=== PATIENT | male | born 1985 | race Caucasian/White ===

== ENCOUNTER 2021-08-13 14:06 | Emergency (ER) | payer BC, OTHER ==
[2021-08-13] MEDS ORDERED: Sodium Chloride 0.9% 10 ML Syringe FLUSH PRN (14:25)
[2021-08-13] MEDS ORDERED: Dexamethasone 4 MG Tab PO ONE (14:28)
--- NOTE | 2021-08-13 14:38 | EDM.PDOC ---
ED HPI GENERAL MEDICAL PROBLEM - General Chief Complaint: Respiratory Problem Stated Complaint: COVID + Time Seen by Provider: 08/13/21 14:15 Source of Information: Reports: Patient, RN Notes Reviewed History Limitations: Reports: No Limitations - History of Present Illness INITIAL COMMENTS - FREE TEXT/NARRATIVE: Patient is a 36-year-old male presenting to the emergency department with complaints of harsh cough and shortness of breath with a known diagnosis of COVID-19. Patient reports symptoms began approximately 10 days ago. He was seen in the clinic to receive monoclonal antibody infusion and found to be hypoxic. On arrival to ER, oxygen saturations were 80% on room air after ambulating back to the room. He is currently on 1-1/2 L of oxygen saturating in the low 90s. Patient denies any chest pain, fever, chills, nausea, vomiting, or diarrhea. Reports that he only feels short of breath when he has a boat coughing fit ". Denies any chronic underlying medical conditions. - Related Data Allergies Allergy/AdvReac Type Severity Reaction Status Date / Time No Known Allergies Allergy Verified 08/13/21 14:18 Home Meds: Home Meds dexAMETHasone [Decadron] 6 mg PO DAILY 4 Days #4 tablet 08/13/21 [Rx] Past Medical History Musculoskeletal History: Reports: Back Pain, Chronic Endocrine/Metabolic History: Reports: Obesity/BMI 30+ - Infectious Disease History Infectious Disease History: Reports: Novel Coronavirus Social & Family History - Tobacco Use Tobacco Use Status *Q: Never Tobacco User - Caffeine Use Caffeine Use: Reports: None - Recreational Drug Use Recreational Drug Use: No ED ROS GENERAL - Review of Systems Review Of Systems: See Below Constitutional: Denies: Fever, Weakness HEENT: Reports: No Symptoms Respiratory: Reports: Shortness of Breath, Cough. Denies: Pleuritic Chest Pain Cardiovascular: Reports: Dyspnea on Exertion. Denies: Chest Pain Endocrine: Reports: No Symptoms GI/Abdominal: Reports: No Symptoms : Reports: No Symptoms Musculoskeletal: Reports: No Symptoms Skin: Reports: No Symptoms Neurological: Reports: No Symptoms Psychiatric: Reports: No Symptoms Hematologic/Lymphatic: Reports: No Symptoms Immunologic: Reports: No Symptoms ED EXAM, GENERAL - Physical Exam Exam: See Below Exam Limited By: No Limitations General Appearance: Alert, WD/WN, No Apparent Distress Respiratory/Chest: No Respiratory Distress, Normal Breath Sounds, No Accessory Muscle Use, Chest Non-Tender, Other (Occasional scattered rhonchi) Cardiovascular: Normal Peripheral Pulses, Regular Rate, Rhythm, No Edema, No Gallop, No JVD, No Murmur, No Rub GI/Abdominal: Normal Bowel Sounds, Soft, Non-Tender, No Organomegaly, No Distention, No Abnormal Bruit, No Mass Neurological: Alert, Oriented, CN II-XII Intact, Normal Cognition, Normal Gait, Normal Reflexes, No Motor/Sensory Deficits Psychiatric: Normal Affect, Normal Mood Skin Exam: Warm, Dry, Intact, Normal Color, No Rash Course - Vital Signs Last Recorded V/S: Last Vital Signs Temp 98.1 F 08/13/21 14:15 Pulse 91 08/13/21 14:15 Resp 20 08/13/21 14:15 BP 120/73 08/13/21 14:15 Pulse Ox 95 08/13/21 15:40 - Orders/Labs/Meds Labs: Laboratory Tests 08/13/21 08/13/21 08/13/21 Range/Units 15:38 15:38 15:38 WBC 4.44 (4.23-9.07) K/mm3 RBC 5.17 (4.63-6.08) M/mm3 Hgb 14.9 (13.7-17.5) gm/dl Hct 44.7 (40.1-51.0) % MCV 86.5 (79.0-92.2) fl MCH 28.8 (25.7-32.2) pg MCHC 33.3 (32.2-35.5) g/dl RDW Std Deviation 41.0 (35.1-43.9) fL Plt Count 236 (163-337) K/mm3 MPV 9.7 (9.4-12.3) fl Neut % (Auto) 60.4 (34.0-67.9) % Lymph % (Auto) 21.8 (21.8-53.1) % [place] % (Auto) 10.8 (5.3-12.2) % Eos % (Auto) 0.7 L (0.8-7.0) Baso % (Auto) 0.9 (0.1-1.2) % Neut # (Auto) 2.68 (1.78-5.38) K/mm3 Lymph # (Auto) 0.97 L (1.32-3.57) K/mm3 [place] # (Auto) 0.48 (0.30-0.82) K/mm3 Eos # (Auto) 0.03 L (0.04-0.54) K/mm3 Baso # (Auto) 0.04 (0.01-0.08) K/mm3 D-Dimer, Quantitative 0.63 H (0.19-0.50) mg/L Sodium 144 (136-145) mEq/L Potassium 3.9 (3.5-5.1) mEq/L Chloride 105 (98-107) mEq/L Carbon Dioxide 30 (21-32) mEq/L Anion Gap 12.9 (5-15) BUN 13 (7-18) mg/dL Creatinine 1.0 (0.7-1.3) mg/dL Est Cr Clr Drug Dosing 101.14 mL/min Estimated GFR (MDRD) > 60 (>60) mL/min BUN/Creatinine Ratio 13.0 L (14-18) Glucose 98 (70-99) mg/dL Calcium 8.1 L (8.5-10.1) mg/dL Total Bilirubin 0.6 (0.2-1.0) mg/dL AST 88 H (15-37) U/L ALT 110 H (16-63) U/L Alkaline Phosphatase 84 (46-116) U/L Troponin I < 0.017 (0.00-0.056) ng/mL C-Reactive Protein 4.0 H* (<1.0) mg/dL Total Protein 6.8 (6.4-8.2) g/dl Albumin 3.2 L (3.4-5.0) g/dl Globulin 3.6 gm/dL Albumin/Globulin Ratio 0.9 L (1-2) Meds: Medications Discontinued Medications Generic Name Dose Route Start Last Admin Trade Name Freq PRN Reason Stop Dose Admin Dexamethasone 6 mg 08/13/21 14:28 08/13/21 15:39 Dexamethasone 4 Mg Tab PO 08/13/21 14:29 6 mg ONETIME ONE Administration Sodium Chloride 10 ml 08/13/21 14:25 08/13/21 15:39 Sodium Chloride 0.9% 10 Ml Syringe FLUSH 10 ml ASDIRECTED PRN Administration Keep Vein Open - Re-Assessments/Exams Free Text/Narrative Re-Assessment/Exam: Patient is a 36-year-old male presenting to the emergency department from the clinic for evaluation of hypoxia with known diagnosis of COVID-19. Reports he was going to the clinic today to get monoclonal antibody infusion and he was found to be hypoxic, therefore they sent him here. He is on approximately day 10 of his illness. Oxygen saturation after ambulating back to the room was found to be 83% on room air. He is currently on 1-1/2 L saturating in the low 90s. Main complaints are cough and shortness of breath. Denies any nausea vomiting or diarrhea. Has had no chest pain. I have ordered blood work, chest x-ray, and dexamethasone 6 mg orally to be given now. 08/13/21 17:03 Hematology significant for D-dimer minimally elevated 0.63, CRP 4.0. These are both to be expected with a known diagnosis of COVID-19. Liver enzymes are mi ldly elevated at AST 88 and [id number]. Chest x-ray shows moderate to severe Covid pneumonia. Patient is maintaining oxygen saturation of 95% on 2 L of oxygen by nasal cannula. Discussed with him that ideally I would like to have him admitted into the hospital for treatment with steroids and remdesivir, however the no beds available in our facility or in [place]. Discussed that I would like to look beyond this, however he refused. States that he will not be admitted anywhere further than [place]. I did reconfirm with both [facility] in [place] that they have no beds available. Alternatively, patient will be discharged home on home oxygen with dexamethasone. Discussed with him that if he is requiring more than 4 L of oxygen to keep his saturations above 92%, he should return to the emergency department. Departure - Departure Time of Disposition: 17:26 Disposition: Home, Self-Care 01 Condition: Fair Clinical Impression: Pneumonia due to COVID-19 virus - Discharge Information *PRESCRIPTION DRUG MONITORING PROGRAM REVIEWED*: No *COPY OF PRESCRIPTION DRUG MONITORING REPORT IN PATIENT SHAHID: No Prescriptions: dexAMETHasone [Decadron] 6 mg PO DAILY 4 Days #4 tablet Instructions: COVID-19 Referrals: PCP,None [Primary Care Provider] - Forms: ED Department Discharge Additional Instructions: You were seen in the emergency department today for evaluation of cough and shortness of breath with a known diagnosis of COVID-19. Work-up included blood work and chest x-ray. Results of work-up show that you do have fairly significant Covid pneumonia. Your oxygen saturation was 83% on room air upon arrival to ER with ideal oxygenation being above 92%. While in the ER, you received your first dose of dexamethasone which is a steroid. Admission to hospital facility would be ideal, however there are no available hospital beds in [facility] and you declined for us to look further for hospital placement. You have been sent home with home oxygen. Wear this at all times to keep your oxygen saturations above 92%. Prescription for dexamethasone has been sent to your pharmacy. Take this as prescribed starting tomorrow. If you feel that your symptoms are worsening or you are requiring more than 4 L of oxygen to keep your saturations above 92%, you should return to the emergency department for reevaluation. Sepsis Event Note (ED) - Evaluation Sepsis Screening Result: No Definite Risk
--- NOTE | 2021-08-13 15:07 | CR ---
Chest: Frontal view of the chest was obtained. Comparison: No previous chest imaging is available. Patchy areas of increased density are seen on both sides of the chest. Heart size and mediastinum are normal. Bony structure shows nothing definitely acute. Impression: 1. Patchy areas of increased density on both sides of the chest highly suspicious for moderate to severe areas of COVID pneumonia. Diagnostic code #3
== END 2021-08-13 19:40 | disposition home or self-care (01) ==
LOC: JD.ED 14:06
DX: U07.1 COVID-19 (principal); J12.82 Pneumonia due to coronavirus disease 2019; E66.9 Obesity, unspecified; Z68.41 Body mass index [BMI] 40.0-44.9, adult
CPT/HCPCS: 36415; 71045; 80053; 84484; 85025; 85379; 86140; 99285; J8540; 99284

== ENCOUNTER 2023-01-27 19:38 | Emergency (ER) | payer BC | END 2023-01-27 21:13 | disposition home or self-care (01) | LOC: JD.ED 19:38 | DX: S61.217A Laceration without foreign body of left little finger without damage to nail, initial encounter (principal); E66.9 Obesity, unspecified; Z68.42 Body mass index [BMI] 45.0-49.9, adult; W26.0XXA Contact with knife, initial encounter | CPT/HCPCS: 99282 ==

== ENCOUNTER 2023-05-08 17:39 | Emergency (ER) | payer BC ==
[2023-05-08] MEDS ORDERED: Aspirin 81 MG Tab.Chew PO ONE (17:51)
[2023-05-08 18:18] LABS: BASOPHILS ABSOLUTE AUTO 0.01 K/mm3 (0.01-0.08); BASOPHILS PERCENT AUTO 0.1 % (0.1-1.2); EOSINOPHILS ABSOLUTE AUTO 0.15 K/mm3 (0.04-0.54); HEMATOCRIT 43.4 % (40.1-51.0); HEMOGLOBIN 14.9 gm/dl (13.7-17.5); IMMATURE GRAN ABSOLUTE AUTO 0.06 K/mm3 (0.00-0.10); IMMATURE GRAN PERCENT AUTO 0.8 % (<=1.0); LYMPHOCYTES ABSOLUTE AUTO 2.34 K/mm3 (1.32-3.57); LYMPHOCYTES PERCENT AUTO 30.8 % (21.8-53.1); MEAN CORPUSCULAR HGB CONC 34.3 g/dl (32.2-35.5); MEAN CORPUSCULAR VOLUME 84.6 fl (79.0-92.2); MEAN PLATELET VOLUME 9.6 fl (9.4-12.3); MONOCYTES ABSOLUTE AUTO 0.93 K/mm3 (0.30-0.82); MONOCYTES PERCENT AUTO 12.2 % (5.3-12.2); NEUTROPHILS ABSOLUTE AUTO 4.11 K/mm3 (1.78-5.38); NEUTROPHILS PERCENT AUTO 54.1 % (34.0-67.9); PLATELET COUNT,PLT 199 K/mm3 (163-337); RED BLOOD CELL COUNT 5.13 M/mm3 (4.63-6.08)
[2023-05-08 18:36] LABS: INR 0.96; PROTHROMBIN TIME 10.3 SECONDS (9.7-12.0)
[2023-05-08 18:38] LABS: D-DIMER QUANTITATIVE < 0.19 mg/L (0.19-0.50)
[2023-05-08 18:45] LABS: A/G RATIO 1.4 (1-2); ALBUMIN 4.1 g/dl (3.4-5.0); ANION GAP 12.6 (5-15); BILIRUBIN TOTAL 0.7 mg/dL (0.2-1.0); CALCIUM 8.7 mg/dL (8.5-10.1); EST CRCL DRUG DOSING (CG) 100.16 mL/min; POTASSIUM,K 3.6 mEq/L (3.5-5.1); PROTEIN TOTAL,TP 7.1 g/dl (6.4-8.2)
== END 2023-05-08 19:08 | disposition home or self-care (01) ==
LOC: JD.ED 17:39
DX: R07.9 Chest pain, unspecified (principal); E66.9 Obesity, unspecified; Z68.41 Body mass index [BMI] 40.0-44.9, adult; Z86.16 Personal history of COVID-19
CPT/HCPCS: 36415; 71045; 80053; 84484; 85025; 85379; 85610; 99285; A9270; 93010; 99284

== ENCOUNTER 2023-05-22 15:48 | Emergency (ER) | payer BC ==
[2023-05-22] MEDS ORDERED: Sodium Chloride 0.9% 10 ML Syringe FLUSH PRN (16:07)
[2023-05-22] MEDS ORDERED: HYDROmorphone 0.5 MG/0.5 ML Syringe IVPUSH ONE (16:08)
[2023-05-22 16:24] LABS: BASOPHILS ABSOLUTE AUTO 0.02 K/mm3 (0.01-0.08); BASOPHILS PERCENT AUTO 0.3 % (0.1-1.2); EOSINOPHILS ABSOLUTE AUTO 0.15 K/mm3 (0.04-0.54); EOSINOPHILS PERCENT AUTO 1.9 (0.8-7.0); HEMATOCRIT 43.4 % (40.1-51.0); HEMOGLOBIN 14.7 gm/dl (13.7-17.5); IMMATURE GRAN ABSOLUTE AUTO 0.13 K/mm3 (0.00-0.10); IMMATURE GRAN PERCENT AUTO 1.7 % (<=1.0); LYMPHOCYTES PERCENT AUTO 28.1 % (21.8-53.1); MEAN CORPUSCULAR HEMOGLOBIN 28.9 pg (25.7-32.2); MEAN CORPUSCULAR HGB CONC 33.9 g/dl (32.2-35.5); MEAN CORPUSCULAR VOLUME 85.4 fl (79.0-92.2); MEAN PLATELET VOLUME 9.8 fl (9.4-12.3); MONOCYTES ABSOLUTE AUTO 0.83 K/mm3 (0.30-0.82); MONOCYTES PERCENT AUTO 10.6 % (5.3-12.2); NEUTROPHILS ABSOLUTE AUTO 4.49 K/mm3 (1.78-5.38); NEUTROPHILS PERCENT AUTO 57.4 % (34.0-67.9); PLATELET COUNT,PLT 240 K/mm3 (163-337); RED BLOOD CELL COUNT 5.08 M/mm3 (4.63-6.08); WHITE BLOOD CELL COUNT,WBC 7.82 K/mm3 (4.23-9.07)
[2023-05-22 16:33] LABS: A/G RATIO 1.2 (1-2); ALBUMIN 3.8 g/dl (3.4-5.0); ANION GAP 9.9 (5-15); BILIRUBIN TOTAL 0.2 mg/dL (0.2-1.0); CALCIUM 8.1 mg/dL (8.5-10.1); EST CRCL DRUG DOSING (CG) 100.16 mL/min; POTASSIUM,K 3.9 mEq/L (3.5-5.1)
[2023-05-22] MEDS ORDERED: amLODIPine 5 MG Tab PO ONE (17:23)
== END 2023-05-22 17:45 | disposition home or self-care (01) ==
LOC: JD.ED 15:48
DX: R07.9 Chest pain, unspecified (principal); E66.9 Obesity, unspecified; Z79.82 Long term (current) use of aspirin; Z86.16 Personal history of COVID-19; Z68.42 Body mass index [BMI] 45.0-49.9, adult
CPT/HCPCS: 36415; 71045; 80053; 84484; 85025; 93005; 99285; A9270; J1170; J3490

== ENCOUNTER 2025-09-02 17:23 | Emergency (ER) | payer BC, OTHER ==
[2025-09-02 18:26] LABS: BASOPHILS ABSOLUTE AUTO 0.0 K/mm3 (0.0-0.2); BASOPHILS PERCENT AUTO 0.5 % (0.0-1.0); EOSINOPHILS ABSOLUTE AUTO 0.1 K/mm3 (0.0-0.4); EOSINOPHILS PERCENT AUTO 1.1 % (0.0-6.0); IMMATURE GRAN ABSOLUTE AUTO 0.06 K/mm3 (0.00-0.05); IMMATURE GRAN PERCENT AUTO 1.0 % (0.0-0.4); LYMPHOCYTES ABSOLUTE AUTO 1.4 K/mm3 (1.0-4.8); LYMPHOCYTES PERCENT AUTO 22.7 % (24.0-44.0); MEAN PLATELET VOLUME 9.7 fl (9.4-12.4); MONOCYTES ABSOLUTE AUTO 0.7 K/mm3 (0.0-0.8); MONOCYTES PERCENT AUTO 10.8 % (0.0-8.0); NEUTROPHILS ABSOLUTE AUTO 4.0 K/mm3 (1.8-7.7); NEUTROPHILS PERCENT AUTO 63.9 % (41.0-71.0); NRBC ABSOLUTE 0.00 (0.00-0.02); NRBC PERCENT 0.0 % (0.0-0.2); PLATELET COUNT,PLT 196 K/mm3 (150-400); RED BLOOD CELL COUNT 5.47 M/mm3 (4.52-5.90); WHITE BLOOD CELL COUNT,WBC 6.21 K/mm3 (3.9-11.3)
[2025-09-02 18:45] LABS: A/G RATIO 1.3 (1-2); ALANINE AMINOTRANSFERASE,ALT 46.0 U/L (16-63); ASPARTATE AMNIOTRANSFERASE,AST 19.0 U/L (15-37); BILIRUBIN TOTAL 0.7 mg/dL (0.2-1.0); BLOOD UREA NITROGEN,BUN 14.0 mg/dL (7-18); CARBON DIOXIDE,CO2 23.0 mEq/L (21-32); CHLORIDE,CL 109.0 mEq/L (98-107); CREATININE 1.1 mg/dL (0.7-1.3); EST CRCL DRUG DOSING (CG) 88.38 mL/min; ESTIMATED GFR 86.0 mL/min (>60); GLUCOSE RANDOM 132.0 mg/dL (70-99); POTASSIUM,K 3.5 mEq/L (3.5-5.1); PROTEIN TOTAL,TP 6.8 g/dl (6.4-8.2); SODIUM,NA 142.0 mEq/L (136-145); TROPONIN I HIGH SENSITIVITY 5.0 pg/mL (<=76)
[2025-09-02] MEDS: Alum Hydrox/Mag Hydrox/Simeth 30 ML, Lidocaine 2% 15 ML PO ONE (21:39)
[2025-09-02] MEDS: Sodium Chloride 0.9% 10 ML Syringe FLUSH PRN (21:40)
== END 2025-09-02 21:25 | disposition home or self-care (01) ==
LOC: JD.ED 17:23
DX: R07.2 Precordial pain (principal); Z79.82 Long term (current) use of aspirin; Z79.899 Other long term (current) drug therapy; Z86.16 Personal history of COVID-19
CPT/HCPCS: 36415; 71045; 80053; 83690; 84484; 85025; 85379; 93005; 99285; A9270; J3490